=== PATIENT | female | born 2000 | race Caucasian/White ===

== ENCOUNTER 2018-01-19 17:44 | Emergency (ER) | payer MEDICAID ==
[~2018-01-19] VITALS: Ht 152.4 cm; Wt 48.4 kg
[2018-01-19 17:53] VITALS: BP 116/79
== END 2018-01-19 19:20 | disposition home or self-care (01) ==
LOC: ED 19:15
DX: R10.2 Pelvic and perineal pain (principal)
CPT/HCPCS: 99283